=== PATIENT | female | born 1970 | race Caucasian/White ===

== ENCOUNTER 2022-09-20 12:36 | Emergency (ER) | payer OTHER ==
[~2022-09-20] VITALS: Ht 152.4 cm; Wt 129.5 kg
[2022-09-20] MEDS ORDERED: ALBU18HF12 IH ×2 (13:15→18:38)
[2022-09-20] MEDS ORDERED: MONT-35 PO (13:15)
[2022-09-20] MEDS ORDERED: ALBUTEROL NEB IH (13:15)
[2022-09-20] MEDS ORDERED: ESCI-8 PO (13:15)
[2022-09-20 13:50] LABS: COVID AG,FIA SOURCE NASAL SWAB
[2022-09-20 14:22] LABS: INFLUENZA TYPE A NEGATIVE FOR TYPE A (NEGATIVE); INFLUENZA TYPE B NEGATIVE FOR TYPE B (NEGATIVE)
[2022-09-20] MEDS ORDERED: ALBUTEROL SULFATE 2.5 MG/0.5 ML NEB SOLUTION NEB ONE ×2 (14:45→16:15)
[2022-09-20] MEDS ORDERED: DEXAMETHASONE SOD PHOS 4 MG/ML 5 ML VIAL IVP ONE (14:45)
[2022-09-20] MEDS ORDERED: IPRATROPIUM BROMIDE 0.5 MG/2.5 ML NEB SOLUTION NEB ONE ×2 (14:45→16:15)
[2022-09-20] MEDS ORDERED: 0.9% SODIUM CHLORIDE 5 ML NEB SOLUTION NEB ONE (14:58)
[2022-09-20 15:26] LABS: BASOPHILS % (AUTO) 0.8 % (0.0-2.0); HEMOGLOBIN 13.5 g/dL (12.0-16.0); LYMPHOCYTES # (AUTO) 2.4 K/uL (1.0-4.8); MEAN CORPUSCULAR HEMOGLOBIN 29.5 pg (26.0-34.0); MEAN CORPUSCULAR HGB CONC 32.9 G/dL (31.0-37.0); MEAN CORPUSCULAR VOLUME 90 fL (80-100); MONOCYTES # (AUTO) 0.8 K/uL (0.1-1.0); MONOCYTES % (AUTO) 7.2 % (2.0-9.0); RED BLOOD CELL COUNT(AUTO) 4.58 MIL/uL (4.00-5.20); RED CELL DISTRIBUTION WIDTH 13.5 % (11.5-14.5)
[2022-09-20 15:29] LABS: ANION GAP 7 mmol/L (8-16); CARBON DIOXIDE 30 mmol/L (22-29); CHLORIDE 103 mmol/L (98-107); CREATININE 0.82 mg/dL (0.60-1.30); GLOMERULAR FILTR. RATE CALC > 60 mL/min (>60); GLUCOSE,RANDOM 136 mg/dL (70-110); POTASSIUM 3.8 mmol/L (3.5-5.1); SODIUM SERUM 140 mmol/L (136-145); UREA NITROGEN, BLOOD 6 mg/dL (7-18)
[2022-09-20 15:35] LABS: ALANINE AMINOTRANSFERASE 41 U/L (12-78); ALBUMIN 3.3 g/dL (3.4-5.0); ALKALINE PHOSPHATASE 89 U/L (46-116); ASPARTATE AMINOTRANSFERASE 22 U/L (15-37); BILIRUBIN,TOTAL 0.4 mg/dL (0.1-1.0); TOTAL PROTEIN, SERUM 6.8 g/dL (6.4-8.2)
[2022-09-20 15:41] LABS: B-TYPE NATRIURETIC PEPTIDE < 5 pg/mL (0-100)
[2022-09-20 15:44] LABS: LACTIC ACID 2.3 mmol/L (0.4-2.0)
[2022-09-20 15:46] LABS: PLATELET COUNT (AUTO) 239 K/uL (150-450)
[2022-09-20] MEDS ORDERED: BENZ-227 PO (18:38)
[2022-09-20] MEDS ORDERED: IPRAHFA IH (18:38)
[2022-09-20] MEDS ORDERED: FLUT1BLS9 IH (18:38)
[2022-09-20] MEDS ORDERED: GUAIFDM PO (18:38)
[2022-09-20] MEDS ORDERED: PRED-554 PO (18:38)
[2022-09-20] MEDS ORDERED: AUD NEB (18:38)
[2022-09-20 18:58] VITALS: BP 160/90
== END 2022-09-20 18:59 | disposition home or self-care (01) ==
LOC: EMS 12:40
DX: J06.9 Acute upper respiratory infection, unspecified (principal); J45.901 Unspecified asthma with (acute) exacerbation; Z90.49 Acquired absence of other specified parts of digestive tract; Z20.822 Contact with and (suspected) exposure to COVID-19
CPT/HCPCS: 99285; 96374; 71045; 87426; 80053; 83605; 83880; 84484; 85025; 87804; 36415; 94640; 93005; J1100; 94644; J7613